=== PATIENT | male | born 1970 | race Caucasian/White ===

== ENCOUNTER 2022-04-23 10:21 | Outpatient (CLI) | payer BC ==
[2022-04-23 12:29] LABS: Hemoglobin 13.6 g/dL (13.5-17.5); Mean Corpuscular HGB CONC 34.3 g/dL (32.0-36.0); Mean Corpuscular Hemoglobin 29.4 pg (27.0-33.0); Mean Corpuscular Volume 85.9 fl (81.2-95.1); Mean Platelet Volume 10.5 fl (7.4-10.4); Platelet Count 293 10x3/uL (150-450); RBC Distribution Width 12.9 % (11.5-14.5); Red Blood Cell (RBC) Count 4.62 10x6/uL (4.32-5.72); White Blood Cell (WBC) Count 9.4 10x3/uL (3.5-10.5)
[2022-04-23 12:53] LABS: Anion Gap 14 mmol/L (10-20); BUN (Urea Nitrogen) 16 mg/dL (8.9-20.6); Calc. Creatinine Clearance 0 mL/min (70-130); Calcium 8.8 mg/dL (7.8-10.44); Carbon Dioxide 25 mmol/L (22-29); Chloride 106 mmol/L (98-107); Estimated GFR 105; Glucose 95 mg/dL (70-105); Potassium 4.3 mmol/L (3.5-5.1); Sodium 141 mmol/L (136-145)
== END 2022-04-23 10:22 | disposition home or self-care (01) ==
LOC: CSHLAB 10:21
PROVIDERS: ATTEND Specialist
DX: Z01.818 Encounter for other preprocedural examination (principal); R93.1 Abnormal findings on diagnostic imaging of heart and coronary circulation
CPT/HCPCS: 80048; 85027; 85610; 93005; 93010

== ENCOUNTER → 2022-04-24 | Day surgery (SDC) | payer BC ==
[~2022-04-24] MED LIST: Adenosine 6 MG/2 ML VIAL ONE; Aspirin Chewable 81 MG TAB ONE; Fentanyl 100 MCG/2 ML VIAL ONE; Heparin 10,000 UNITS/ 10 ML VIAL ONE; Iopamidol 300 61% 100 ML VIAL FS ONE; Lidocaine 1% (PF) 30 ML VIAL ONE; Midazolam HCl 2 mg/2 ml Vial ONE; Nitroglycerin 50 MG/250 ML BOT 0 ML ONE
[2022-04-24 12:18] VITALS: BP 156/74; TEMP 97.9
== END | disposition home or self-care (01) ==
LOC: CSHSDC 09:36
PROVIDERS: ATTEND Specialist
PROC: B205YZZ Plain Radiography of Left Heart using Other Contrast (ICD-10-PCS; principal; 2022-04-24)
PROC: 4A023N7 Measurement of Cardiac Sampling and Pressure, Left Heart, Percutaneous Approach (ICD-10-PCS; principal; 2022-04-24)
PROC: B201YZZ Plain Radiography of Multiple Coronary Arteries using Other Contrast (ICD-10-PCS; principal; 2022-04-24)
DX: I25.119 Atherosclerotic heart disease of native coronary artery with unspecified angina pectoris (principal); I10 Essential (primary) hypertension; E78.2 Mixed hyperlipidemia; R73.03 Prediabetes; G47.33 Obstructive sleep apnea (adult) (pediatric); M10.9 Gout, unspecified; E66.01 Morbid (severe) obesity due to excess calories; Z68.43 Body mass index [BMI] 50.0-59.9, adult; Z79.82 Long term (current) use of aspirin; Z79.899 Other long term (current) drug therapy; Z98.890 Other specified postprocedural states
CPT/HCPCS: 93458; 99152; C1760; C1769; J0153; J1644; J2001; J2250; J3010; Q9967

== ENCOUNTER 2024-07-03 12:01 | Inpatient (IN) | payer BC ==
[2024-07-03] MEDS ORDERED: Iopamidol-370 76% 500 ML MDV (1 ML CHARGE) ONE (12:58)
[2024-07-03] MEDS ORDERED: Magnesium 2 GM/50 ML BAG (IN WATER) ONE (13:11)
[2024-07-03 13:46] LABS: #Basophils 0.04 10x3/uL (0.0-0.2); #Eosinophils 0.26 10x3/uL (0.0-0.5); #Monocytes 0.72 10x3/uL (0.0-1.1); #Neutrophils 6.34 10x3/uL (1.5-8.4); %Basophils 0.4 % (0.0-2.0); %Eosinophils 2.7 % (0.0-6.0); %Monocytes 7.5 % (0.0-10.0); %Neutrophils 65.9 % (40.0-75.0); Hematocrit 44.3 % (38.8-50.0); Mean Corpuscular HGB CONC 33.9 g/dL (32.0-36.0); Mean Corpuscular Hemoglobin 29.1 pg (27.0-33.0); PTT 25.1 sec (22.0-33.0); Platelet Count 191 10x3/uL (150-450); Prothrombin Time 10.9 sec (9.5-12.1); RBC Distribution Width 12.7 % (11.5-14.5); Red Blood Cell (RBC) Count 5.15 10x6/uL (4.32-5.72); White Blood Cell (WBC) Count 9.62 10x3/uL (3.5-10.5)
[2024-07-03 13:53] LABS: ALT (SGPT) 39 U/L (Less than 45); AST (SGOT) 28 U/L (11-34); Albumin 3.5 g/dL (3.1-4.5); Alkaline Phosphatase 78 U/L (40-110); Anion Gap 12 mmol/L (10-20); BUN (Urea Nitrogen) 21 mg/dL (8.4-25.7); Bilirubin, Total 0.5 mg/dL (0.3-1.2); Calc. Creatinine Clearance 0 mL/min (70-130); Calcium 8.7 mg/dL (7.8-10.44); Carbon Dioxide 23 mmol/L (22-29); Chloride 109 mmol/L (98-107); Estimated GFR 103; Globulin 3.9 g/dL (2.4-3.5); Glucose 124 mg/dL (70-105); Potassium 3.8 mmol/L (3.5-5.1); Protein, Total 7.4 g/dL (6.0-8.3); Sodium 140 mmol/L (136-145)
[2024-07-03 13:57] LABS: Troponin I Less than 0.010 ng/mL (< 0.028)
[2024-07-03 14:48] LABS: D-Dimer Test 0.67 mcg/mL (0.19-0.50)
[2024-07-03] MEDS ORDERED: Apixaban 5 MG TAB ONE (15:32)
[2024-07-03] MEDS ORDERED: Potassium Chloride 20 MEQ TAB ONE (15:32)
[2024-07-03 17:43] LABS: Troponin I Less than 0.010 ng/mL (< 0.028)
[2024-07-03] MEDS ORDERED: Metoprolol Tartrate 5 MG (5 mL) VIAL IVP PRN (18:48)
[2024-07-03] MEDS: Sotalol HCl 80 MG TAB PO SCH (19:21)
[2024-07-03 19:33] VITALS: BMI 50.0
[2024-07-03] MEDS ORDERED: Colchicine 0.6 MG TAB PO PRN (20:45)
[2024-07-03] MEDS ORDERED: CeleCOXIB 100 MG CAP PO SCH (21:00)
[2024-07-03] MEDS: Furosemide 20 MG TAB PO SCH (21:16)
[2024-07-03] MEDS: CeleCOXIB 100 MG CAP PO SCH (21:16)
[2024-07-03] MEDS: CO Q-10 CAPSULE 50 MG PO SCH (21:16)
[2024-07-03] MEDS: Atenolol 25 MG TAB PO SCH (21:17)
[2024-07-03] MEDS: Aspirin 81 mg Enteric Coated Tablet PO SCH (21:18)
[2024-07-03] MEDS: Amlodipine 10 MG TAB PO SCH (21:19)
[2024-07-03] MEDS: Ascorbic Acid 500 mg Chewable Tablet PO SCH (21:19)
[2024-07-04 04:51] LABS: Anion Gap 11 mmol/L (10-20); BUN (Urea Nitrogen) 17 mg/dL (8.4-25.7); Calc. Creatinine Clearance 198 mL/min (70-130); Calcium 8.6 mg/dL (7.8-10.44); Carbon Dioxide 24 mmol/L (22-29); Chloride 111 mmol/L (98-107); Estimated GFR 104; Glucose 99 mg/dL (70-105); Magnesium 2.3 mg/dL (1.6-2.6); Potassium 4.2 mmol/L (3.5-5.1); Sodium 142 mmol/L (136-145)
[2024-07-04] MEDS: Isosorbide Mononitrate 30 MG ER.TAB PO SCH (08:53)
[2024-07-04] MEDS: Fish Oil 1,000 MG CAP PO SCH (08:54)
[2024-07-04] MEDS: Rosuvastatin 20 MG TAB PO SCH (08:54)
[2024-07-04] MEDS: Sotalol HCl 80 MG TAB PO SCH (08:54)
[2024-07-04] MEDS: Apixaban 5 MG TAB PO SCH (08:55)
[2024-07-04] MEDS: Allopurinol 100 MG TAB PO SCH (08:55)
[2024-07-04] MEDS: Valsartan 80 MG TAB PO SCH (08:56)
[2024-07-04] MEDS ORDERED: Isosorbide Dinitrate 10 MG TAB PO SCH (09:00)
[2024-07-04] MEDS: [UNRECOGNIZED DRUG - OTHER] PO SCH (21:35)
[2024-07-04] MEDS: Non-Formulary Medication 1 EACH (Magnesium Glycinate [Magnesium Glycinate] 100 MG Capsule) PO SCH (21:35)
[2024-07-05 14:11] VITALS: BP 127/75; TEMP 98
== END 2024-07-05 14:48 | disposition home or self-care (01) | DRG 310 ==
LOC: CSHERS 12:01 → CSHTELE 15:59
PROVIDERS: ADMIT Internal Medicine; ATTEND Internal Medicine
DX: I48.91 Unspecified atrial fibrillation (principal); I10 Essential (primary) hypertension; M10.9 Gout, unspecified; E78.00 Pure hypercholesterolemia, unspecified; G47.33 Obstructive sleep apnea (adult) (pediatric); I25.10 Atherosclerotic heart disease of native coronary artery without angina pectoris; Z98.890 Other specified postprocedural states; Z79.82 Long term (current) use of aspirin; Z79.899 Other long term (current) drug therapy; Z79.01 Long term (current) use of anticoagulants
CPT/HCPCS: 36415; 71045; 71275; 80048; 80053; 83735; 83880; 84443; 84484; 85025; 85379; 85610; 85730; 93005; 93010; 93306; 96365; J3475; Q9967